=== PATIENT | female | born 2005 | race Caucasian/White ===

== ENCOUNTER 2023-06-16 11:28 | Emergency (ER) | payer SELFPAY ==
[2023-06-16] MEDS ORDERED: Dexamethasone 10 MG/ML VIAL ONE (13:37)
== END 2023-06-16 13:40 | disposition home or self-care (01) ==
LOC: CSHERS 11:28
DX: B34.9 Viral infection, unspecified (principal)
CPT/HCPCS: 87081; 87430; 99283; J1100

== ENCOUNTER 2024-07-30 16:39 | Emergency (ER) | payer SELFPAY ==
[2024-07-30 18:18] LABS: Pregnancy Test - Urine (BHCG) Negative (Negative); Pregu Control Background? CLEAR/WHITE (CLR/WHITE); Pregu Control Bar Appear? YES (CONTROL BAR); Specific Gravity 1.015 (1.002-1.036)
[2024-07-30 18:19] LABS: Clarity Slightly Cloudy (Clear); Leukocyte Unable to Interpret (Negative); Nitrite Unable to Interpret (Negative); Specific Gravity, Urine 1.015 (1.005-1.030)
[2024-07-30 18:20] LABS: Bilirubin Unable to Interpret (Negative); Blood, Urine Unable to Interpret (Negative); Glucose, Urine (Dipstick) Unable to Interpret mg/dL (Negative); Ketone, Urine Unable to Interpret mg/dL (Negative); Protein, Urine (Dipstick) Unable to Interpret mg/dl (Neg-Trace); Urobilinogen UNABLE TO INTERPRET mg/dL (Less than 2)
[2024-07-30 18:21] LABS: Bacteria/HPF 1+ HPF (None Seen); CAUTI Indications for Culture Pelvic or flank pain; RBC/HPF 0-3 HPF (0-3); WBC/HPF 0-3 HPF (0-3)
[2024-07-30 18:23] LABS: Urine Culture Reflex No No
[2024-07-31 11:00] LABS: Chlam.trachomatis by PCR,Urine Not Detected (NotDetected); GC N.gonorrhoeae PCR,UrineVOID Not Detected (NotDetected)
== END 2024-07-30 19:41 | disposition home or self-care (01) ==
LOC: CSHERS 16:39
DX: N30.90 Cystitis, unspecified without hematuria (principal)
CPT/HCPCS: 81001; 81025; 87491; 87591; 99283